=== PATIENT | female | born 1995 | race Caucasian/White ===

== ENCOUNTER → 2017-12-15 | Outpatient (CLI) | payer BC ==
--- NOTE | 2017-12-15 09:34 | Diagnostic Imaging Report ---
INDICATION: Right upper quadrant abdominal pain. Gallbladder sonography performed in the routine fashion. FINDINGS: The liver shows normal echogenicity with no focal lesions. Gallbladder was unremarkable with no gallstones or wall thickening. Common duct measured 3.7 mm. The portal vein is patent with flow in the normal direction towards the liver. Pancreas is unremarkable to the extent seen. The right kidney was normal and measured 12 cm in length. There is no ascites. IMPRESSION: Unremarkable gallbladder sonography. Dictated by: Dictated on workstation # [id number]
== END ==
LOC: RAD 07:46
PROVIDERS: ATTEND Physician Assistant
DX: R10.11 Right upper quadrant pain (principal)
CPT/HCPCS: 76705